=== PATIENT | female | born 1955 | race Caucasian/White ===

== ENCOUNTER 2017-02-25 07:00 | Inpatient (IN) | payer BC ==
[~2017-02-25] VITALS: Ht 163.8 cm; Wt 82.4 kg
[~2017-02-25 07:00] MED LIST: ACET-76 PO; BACITRACIN 50,000 UNIT ONE; BUPIVACAINE 0.25% ONE; BUPIVACAINE/PF 0.5% ONE; CALC-451 PO; CHOL200024 PO; EPINEPHRINE 1 MG/ML, 1ML ONE; GABA300C10 PO; IBUP200T48 PO; IPRA4AER INH; LEVA15HF4 INH; LEVO75TA5 PO; MELO15TA24 PO; MULT-224 PO; OMEP-110 PO; ROSU40TA PO; SOLI5TAB2 PO; THROMBIN 5,000 UNIT VIAL TP ONE; VARE1TAB21 PO
[2017-02-25] MEDS: ALBUTEROL/IPRATROPIUM 2.5MG/0.5MG, 3 ML NPPB SCH (07:50)
[2017-02-25 10:15] VITALS: BP 167/79
[2017-02-25] MEDS ORDERED: LACTATED RINGERS 1,000 ML IV SCH (10:19)
[2017-02-25] MEDS ORDERED: STOOL SOFTENER PO (10:22)
[2017-02-25] MEDS ORDERED: PNEUMOCOCCAL 23 VACCINE IM-VACC ONE (11:00)
[2017-02-25] MEDS ORDERED: FENTANYL PF 100 MCG/2ML ONE ×4 (11:29→15:58)
[2017-02-25] MEDS ORDERED: MIDAZOLAM 1 MG/ML, 2ML ONE (11:29)
[2017-02-25] MEDS ORDERED: PROPOFOL 10 MG/ML, 20ML ONE (11:30)
[2017-02-25] MEDS ORDERED: DEXAMETHASONE 4 MG/ML, 5ML ONE (12:41)
[2017-02-25] MEDS ORDERED: ONDANSETRON 2MG/ML, 2ML ONE ×2 (12:41→17:03)
[2017-02-25] MEDS ORDERED: CEFAZOLIN 1,000 MG ONE (12:41)
[2017-02-25] MEDS ORDERED: VANCOMYCIN 1,000 MG ONE (13:40)
[2017-02-25] MEDS ORDERED: BUPIVACAINE/PF 0.5% ONE (13:40)
[2017-02-25] MEDS ORDERED: PROMETHAZINE 25 MG/ML, 1ML IV PRN (14:00)
[2017-02-25] MEDS ORDERED: MEPERIDINE/PF 25MG/0.5ML IVPush PRN (14:00)
[2017-02-25] MEDS ORDERED: ALBUTEROL/IPRATROPIUM 2.5MG/0.5MG, 3 ML NPPB PRN (14:00)
[2017-02-25] MEDS ORDERED: ONDANSETRON 2MG/ML, 2ML IVPush PRN (14:00)
[2017-02-25] MEDS ORDERED: OXYcodone 5 MG/5 ML ORAL.SOL UDC PO PRN (14:00)
[2017-02-25] MEDS ORDERED: FENTANYL PF 100 MCG/2ML IV PRN (14:00)
[2017-02-25] MEDS ORDERED: ACETAMINOPHEN 325 MG TABLET PO PRN (14:00)
[2017-02-25] MEDS ORDERED: DIAZEPAM 5 MG/ML, 2ML IVPush PRN (14:00)
[2017-02-25] MEDS ORDERED: VANCOMYCIN 1,000 MG IM ONE (15:15)
[2017-02-25] MEDS ORDERED: HYDROmorphone 1 MG/ML, 1ML ONE ×2 (15:18→15:59)
[2017-02-25] MEDS ORDERED: METHOCARBAMOL 750 MG TABLET PO PRN (15:30)
[2017-02-25] MEDS ORDERED: DIPHENHYDRAMINE 50 MG CAPSULE PO PRN (15:30)
[2017-02-25] MEDS ORDERED: LABETALOL 5MG/ML, 20ML IVPush PRN (15:30)
[2017-02-25] MEDS ORDERED: BISACODYL 10 MG SUPP PR PRN (15:30)
[2017-02-25] MEDS ORDERED: PROMETHAZINE 25 MG/ML, 1ML IM PRN (15:30)
[2017-02-25] MEDS ORDERED: MAGNESIUM HYDROXIDE 8%, 30ML UDC PO PRN (15:30)
[2017-02-25] MEDS ORDERED: PHARMACY MAY ADJ FOR RENAL FX MC PRN (15:30)
[2017-02-25] MEDS ORDERED: HYDROcodone/APAP 5/325 TABLET PO PRN (15:30)
[2017-02-25] MEDS ORDERED: ACETAMINOPHEN 650 MG SUPP PR PRN (15:30)
[2017-02-25] MEDS ORDERED: ALBUTEROL SULFATE 2.5 MG/3 ML NPPB PRN (15:30)
[2017-02-25] MEDS ORDERED: SENNA/DOCUSATE TABLET PO PRN (15:30)
[2017-02-25] MEDS ORDERED: DIPHENHYDRAMINE 50 MG/ML, 1ML IVPush PRN (15:30)
[2017-02-25] MEDS: LABETALOL 5MG/ML, 20ML IV PRN ×2 (15:56→16:15)
[2017-02-25] MEDS ORDERED: hydrALAzine 20 MG/ML, 1ML ONE (15:58)
[2017-02-25] MEDS ORDERED: ACETAMINOPHEN 650 MG/20.3 ML UDC ONE (15:58)
[2017-02-25] MEDS ORDERED: OXYcodone 5 MG/5 ML ORAL.SOL UDC ONE (15:59)
[2017-02-25] MEDS: HYDROmorphone 1 MG/ML, 1ML IV PRN ×3 (16:10→17:12)
[2017-02-25] MEDS: HYDROmorphone 1 MG/ML, 1ML IVPush PRN ×2 (18:37→21:17)
[2017-02-25] MEDS: ONDANSETRON 2MG/ML, 2ML IVPush PRN (18:38)
[2017-02-25] MEDS: D5%-0.9% NACL+KCL 20MEQ 1,000 ML IV SCH (18:41)
[2017-02-25 18:58] VITALS: BP 155/79
[2017-02-25] MEDS: ATORVASTATIN 80 MG TABLET PO SCH (21:00)
[2017-02-25] MEDS: SODIUM CHLORIDE FLUSH 10ML SYR IVF SCH (21:00)
[2017-02-25] MEDS: VARENICLINE 1MG TABLET PO SCH (21:00)
[2017-02-25] MEDS: CEFAZOLIN PMX 1GM/50ML 50 ML IVPB SCH (21:25)
[2017-02-26] VITALS: BP 164/72
[2017-02-26] MEDS: ALBUTEROL/IPRATROPIUM 2.5MG/0.5MG, 3 ML NPPB SCH ×5 (00:30→20:45)
[2017-02-26] MEDS: HYDROmorphone 1 MG/ML, 1ML IVPush PRN ×2 (01:10→03:51)
[2017-02-26] MEDS: ONDANSETRON 2MG/ML, 2ML IVPush PRN ×3 (01:10→21:05)
[2017-02-26] MEDS: D5%-0.9% NACL+KCL 20MEQ 1,000 ML IV SCH ×3 (02:11→21:02)
[2017-02-26 04:00] VITALS: BP 160/68
[2017-02-26 06:01] LABS: HEMATOCRIT 39.7 % (34.6-47.8); HEMOGLOBIN 13.1 g/dL (11.7-16.4); WHITE BLOOD COUNT 11.3 x10^3/uL (3.4-10)
[2017-02-26] MEDS: CEFAZOLIN PMX 1GM/50ML 50 ML IVPB SCH (06:05)
[2017-02-26 06:15] LABS: BLOOD UREA NITROGEN 16 mg/dL (7-18)
[2017-02-26 07:22] VITALS: BP 147/69
[2017-02-26] MEDS: SODIUM CHLORIDE FLUSH 10ML SYR IVF SCH ×2 (09:00→21:01)
[2017-02-26] MEDS: VARENICLINE 1MG TABLET PO SCH ×3 (09:00→21:00)
[2017-02-26] MEDS ORDERED: SCOPOLAMINE PATCH, 1MG PATCH.TD72 TD SCH (09:00)
[2017-02-26] MEDS: OXYBUTYNIN CHLORIDE 5 MG TABLET PO SCH ×4 (09:00→21:01)
[2017-02-26] MEDS: ENOXAPARIN 30 MG/0.3 ML SQ SCH ×2 (09:00→21:00)
[2017-02-26] MEDS: GABAPENTIN 300 MG CAPSULE PO SCH ×3 (09:09→21:01)
[2017-02-26] MEDS: OMEPRAZOLE 20 MG CAPSULE.DR PO SCH (09:09)
[2017-02-26] MEDS: LEVOTHYROXINE 75 MCG TABLET PO SCH (09:10)
[2017-02-26] MEDS ORDERED: SCOPOLAMINE 1.5 MG TP SCH (10:00)
[2017-02-26] MEDS: KETOROLAC 30 MG/1 ML IV PRN ×2 (11:21→17:05)
[2017-02-26 14:00] VITALS: BP 133/66
[2017-02-26 19:24] VITALS: BP 135/63
[2017-02-26] MEDS: ATORVASTATIN 80 MG TABLET PO SCH (21:01)
[2017-02-26] MEDS: predniSOLONE OPHTH SUSP 1%, 5ML LEFTEYE SCH (21:01)
[2017-02-26] MEDS: OXYcodone/APAP 5/325MG TABLET PO PRN (21:06)
[2017-02-27] MEDS: KETOROLAC 30 MG/1 ML IV PRN ×2 (01:05→08:11)
[2017-02-27] MEDS: OXYcodone/APAP 5/325MG TABLET PO PRN ×3 (01:05→10:40)
[2017-02-27 01:35] VITALS: BP 127/71
[2017-02-27] MEDS: ALBUTEROL/IPRATROPIUM 2.5MG/0.5MG, 3 ML NPPB SCH ×2 (03:04→09:00)
[2017-02-27] MEDS: ONDANSETRON 2MG/ML, 2ML IVPush PRN ×2 (05:44→10:40)
[2017-02-27] MEDS: LEVOTHYROXINE 75 MCG TABLET PO SCH (05:45)
[2017-02-27 05:47] LABS: BLOOD UREA NITROGEN 24 mg/dL (7-18)
[2017-02-27 05:50] LABS: HEMATOCRIT 34.3 % (34.6-47.8); HEMOGLOBIN 11.5 g/dL (11.7-16.4); WHITE BLOOD COUNT 8.3 x10^3/uL (3.4-10)
[2017-02-27 07:00] VITALS: BP 125/68
[2017-02-27] MEDS: OMEPRAZOLE 20 MG CAPSULE.DR PO SCH (07:58)
[2017-02-27] MEDS: OXYBUTYNIN CHLORIDE 5 MG TABLET PO SCH (07:59)
[2017-02-27] MEDS: GABAPENTIN 300 MG CAPSULE PO SCH (07:59)
[2017-02-27] MEDS: VARENICLINE 1MG TABLET PO SCH (07:59)
[2017-02-27] MEDS: ENOXAPARIN 30 MG/0.3 ML SQ SCH (08:00)
[2017-02-27] MEDS: SODIUM CHLORIDE FLUSH 10ML SYR IVF SCH (08:00)
[2017-02-27] MEDS: predniSOLONE OPHTH SUSP 1%, 5ML LEFTEYE SCH (08:01)
[2017-02-27] MEDS: D5%-0.9% NACL+KCL 20MEQ 1,000 ML IV SCH (10:14)
[2017-02-27] MEDS ORDERED: PNEUMOCOCCAL 23 VACCINE IM-VACC ONE (11:30)
[2017-02-27] MEDS ORDERED: HYDR-879 PO (12:20)
[2017-02-27] MEDS ORDERED: METH750T87 PO (12:21)
[2017-02-27] MEDS ORDERED: ONDA4TAB12 PO (12:23)
[2017-02-27 12:50] VITALS: BP 105/56
[2017-03-01] MEDS ORDERED: SCOPOLAMINE PATCH, 1MG PATCH.TD72 TD SCH (09:00)
== END 2017-02-27 13:03 | disposition home or self-care (01) | DRG 460 ==
LOC: ORIP 09:42 → 4NOR 18:12
PROVIDERS: ADMIT Neurological Surgery; ATTEND Neurological Surgery
PROC: 01NB0ZZ Release Lumbar Nerve, Open Approach (ICD-10-PCS; 2017-02-25)
PROC: 4A11X4G Monitoring of Peripheral Nervous Electrical Activity, Intraoperative, External Approach (ICD-10-PCS; 2017-02-25)
PROC: 0SG00AJ Fusion of Lumbar Vertebral Joint with Interbody Fusion Device, Posterior Approach, Anterior Column, Open Approach (ICD-10-PCS; principal; 2017-02-25 12:00)
DX: M48.061 Spinal stenosis, lumbar region without neurogenic claudication (principal); M43.16 Spondylolisthesis, lumbar region; M54.16 Radiculopathy, lumbar region
CPT/HCPCS: 36415; 72100; 72131; 80048; 85025; 90732; 94640; C1713; C1729; C1767; J0171; J0690; J1100; J1170; J1885; J2250; J2405; J2550; J2704; J3010; J3370; J3490; J7620; C1762; J3480; J7120